=== PATIENT | male | born 1960 | race African-American/Black ===

== ENCOUNTER 2020-12-04 16:07 | Inpatient (IN) | payer OTHER ==
[~2020-12-04] VITALS: Ht 180.3 cm; Wt 79.8 kg
[2020-12-04] MEDS ORDERED: PIPERACILLIN/TAZ 3.375G PREMIX 50 ML IV ONE (17:15)
[2020-12-04] MEDS ORDERED: VANCOMYCIN 1 G PREMIX 200 ML IV ONE (17:15)
[2020-12-04] MEDS ORDERED: SODIUM CHLORIDE 0.9% 1000ML BAG (SEPSIS BOLUS) IV ONE (17:15)
[2020-12-04 17:43] LABS: HEMATOCRIT. 28.8 % (42.0-52.0); HEMOGLOBIN. 10.1 g/dL (14.0-18.0); MEAN CORPUSCULAR HEMOGLOBIN 33.2 pg (28.0-32.0); MEAN CORPUSCULAR VOLUME 94.8 fL (80.0-94.0); MEAN PLATELET VOLUME 7.7 fl (7.4-10.4); PLATELET 199 x1000/uL (130-400); RED BLOOD CELL COUNT 3.04 mill/uL (4.7-6.1); RED CELL DISTRIBUTION WIDTH 12.8 % (11.6-14.6)
[2020-12-04 17:51] LABS: CHLORIDE 98 mEq/L (98-107)
[2020-12-04 17:58] LABS: BETA HYDROXYBUTYRATE 0.4 mMol/L (0.0-0.3)
[2020-12-04 18:10] LABS: INR 1.1; PARTIAL THROMBOPLASTIN TIME 31.3 sec (23.4-31.0); PROTHROMBIN TIME 11.9 sec (9.6-11.0)
[2020-12-04] MEDS ORDERED: CLINDAMYCIN 600 MG in DEXTROSE 5% WATER 50 ML IV ONE (18:30)
[2020-12-04] MEDS ORDERED: CLINDAMYCIN 600MG PREMIX 50 ML IV NR (18:45)
[2020-12-04 18:54] LABS: PLATELET ESTIMATE NORMAL
[2020-12-04 21:23] LABS: CLARITY URINE CLOUDY (CLEAR); COLOR URINE YELLOW (YELLOW); KETONES URINE NEGATIVE (NEGATIVE); LEUKOCYTE ESTERASE URINE NEGATIVE (NEGATIVE); NITRITE URINE NEGATIVE (NEGATIVE); OCCULT BLOOD URINE 2+ (NEGATIVE); PROTEIN URINE 3+ (NEGATIVE); SPECIFIC GRAVITY URINE 1.015 (1.005-1.030); UROBILINOGEN URINE 0.2 E.U./dL (0.2-1.0)
[2020-12-05 14:00] VITALS: BP 170/87
[2020-12-05] MEDS ORDERED: GLIP10TA10 MT (14:11)
[2020-12-05] MEDS ORDERED: DEXTROSE 50% WATER 50ML SYRINGE IV PRN (14:15)
[2020-12-05] MEDS ORDERED: HYDROCODONE/ACETAMINOPHEN 10/325MG TABLET PO PRN (14:15)
[2020-12-05] MEDS ORDERED: ONDANSETRON HCL 4MG/2ML INJ IV PRN (14:15)
[2020-12-05] MEDS ORDERED: PIPERACILLIN/TAZOBACTAM 3.375 G in DEXT 5% WATER 100 ML IV SCH (14:15)
[2020-12-05] MEDS: SODIUM CHLORIDE 0.9% 1,000 ML IV SCH (15:18)
[2020-12-05] MEDS: CLONIDINE 0.1MG TABLET PO PRN (15:18)
[2020-12-05 16:00] VITALS: BP 159/84
[2020-12-05] MEDS: PIPERACILLIN/TAZOBACTAM 2.25 G in DEXTROSE 5% WATER 50 ML IV SCH ×2 (16:28→21:42)
[2020-12-05] MEDS ORDERED: VANCOMYCIN 750 MG PREMIX 150 ML IV NR (16:30)
[2020-12-05] MEDS: BLOOD SUGAR DIAGNOSTIC STRIP TEST SCH ×2 (17:20→21:38)
[2020-12-05] MEDS: INSULIN LISPRO 100 UNITS/ML SUBCUT SCH ×2 (17:24→21:00)
[2020-12-05 20:00] VITALS: BP 128/82
[2020-12-06] VITALS: BP 143/73
[2020-12-06] MEDS: ACETAMINOPHEN 325MG TABLET PO PRN (01:00)
[2020-12-06] MEDS: PIPERACILLIN/TAZOBACTAM 2.25 G in DEXTROSE 5% WATER 50 ML IV SCH ×4 (03:37→21:08)
[2020-12-06] MEDS: SODIUM CHLORIDE 0.9% 1,000 ML IV SCH ×2 (03:40→17:21)
[2020-12-06 04:00] VITALS: BP 128/82
[2020-12-06] MEDS: BLOOD SUGAR DIAGNOSTIC STRIP TEST SCH ×4 (06:01→21:08)
[2020-12-06] MEDS: INSULIN LISPRO 100 UNITS/ML SUBCUT SCH ×4 (06:06→21:09)
[2020-12-06 07:17] LABS: HEMATOCRIT. 25.5 % (42.0-52.0); HEMOGLOBIN. 8.9 g/dL (14.0-18.0); MEAN CORPUSCULAR VOLUME 94.5 fL (80.0-94.0); MEAN PLATELET VOLUME 8.2 fl (7.4-10.4); PLATELET 200 x1000/uL (130-400); RED CELL DISTRIBUTION WIDTH 12.4 % (11.6-14.6)
[2020-12-06 08:00] VITALS: BP 156/77
[2020-12-06] MEDS: AMLODIPINE 10MG TABLET PO SCH (09:39)
[2020-12-06 11:37] LABS: PLATELET ESTIMATE NORMAL
[2020-12-06 11:51] LABS: TOTAL IRON BINDING CAPACITY 163 ug/dL (250-450)
[2020-12-06 12:00] VITALS: BP 140/83
[2020-12-06] MEDS: VANCOMYCIN 1 G PREMIX 200 ML IV SCH (12:32)
[2020-12-06 15:22] LABS: *BARBITURATES SCREEN URINE NEGATIVE (NEGATIVE); *BENZODIAZEPINES SCREEN URINE NEGATIVE (NEGATIVE); *COCAINE SCREEN URINE NEGATIVE (NEGATIVE); METHADONE URINE SCREEN NEGATIVE (NEGATIVE); OPIATES URINE SCREEN NEGATIVE (NEGATIVE)
[2020-12-06 15:23] LABS: *AMPHETAMINES SCREEN URINE NEGATIVE (NEGATIVE); CANNABINOID URINE SCREEN PRESUMTIVE POSITIVE (NEGATIVE); PHENCYCLIDINE URINE SCREEN NEGATIVE (NEGATIVE)
[2020-12-06 16:00] VITALS: BP 130/70
[2020-12-06] MEDS ORDERED: INSULIN GLARGINE UD 100 UNITS/ML SYR SUBCUT NR (16:45)
[2020-12-06 20:00] VITALS: BP 165/87
[2020-12-06] MEDS: CLONIDINE 0.1MG TABLET PO PRN (21:08)
[2020-12-06] MEDS: INSULIN GLARGINE UD 100 UNITS/ML SYR SUBCUT SCH (21:09)
[2020-12-07] VITALS: BP 122/80
[2020-12-07 04:00] VITALS: BP 120/81
[2020-12-07] MEDS: PIPERACILLIN/TAZOBACTAM 2.25 G in DEXTROSE 5% WATER 50 ML IV SCH ×3 (04:02→16:40)
[2020-12-07 05:58] LABS: BASOPHILS % 0.3 % (0.0-2.0); EOSINOPHILS % 2.3 % (0.0-5.0); HEMATOCRIT. 24.7 % (42.0-52.0); HEMOGLOBIN. 8.6 g/dL (14.0-18.0); LYMPHOCYTES % 18.9 % (20.0-50.0); MEAN CORPUSCULAR HEMOGLOBIN 33.3 pg (28.0-32.0); MEAN CORPUSCULAR VOLUME 95.1 fL (80.0-94.0); MEAN PLATELET VOLUME 8.1 fl (7.4-10.4); MONOCYTES % 10.5 % (2.0-8.0); PLATELET 188 x1000/uL (130-400); RED CELL DISTRIBUTION WIDTH 12.4 % (11.6-14.6)
[2020-12-07] MEDS: BLOOD SUGAR DIAGNOSTIC STRIP TEST SCH ×4 (06:12→20:40)
[2020-12-07] MEDS: INSULIN LISPRO 100 UNITS/ML SUBCUT SCH ×4 (06:13→21:01)
[2020-12-07] MEDS: SODIUM CHLORIDE 0.9% 1,000 ML IV SCH ×2 (06:15→18:50)
[2020-12-07 08:00] VITALS: BP 162/83
[2020-12-07] MEDS: VANCOMYCIN 1 G PREMIX 200 ML IV SCH (09:40)
[2020-12-07] MEDS: AMLODIPINE 10MG TABLET PO SCH (09:40)
[2020-12-07] MEDS: INSULIN GLARGINE UD 100 UNITS/ML SYR SUBCUT SCH ×2 (10:16→21:01)
[2020-12-07 12:00] VITALS: BP 158/80
[2020-12-07 16:00] VITALS: BP 143/78
[2020-12-07 20:00] VITALS: BP 174/87
[2020-12-07] MEDS: CLONIDINE 0.1MG TABLET PO PRN (20:58)
[2020-12-07] MEDS: CEFTRIAXONE 2 G in DEXTROSE 5% WATER 50 ML IV SCH (20:59)
[2020-12-08] VITALS: BP 135/83
[2020-12-08 04:00] VITALS: BP 179/86
[2020-12-08] MEDS: CLONIDINE 0.1MG TABLET PO PRN ×2 (04:58→17:39)
[2020-12-08] MEDS: BLOOD SUGAR DIAGNOSTIC STRIP TEST SCH ×4 (05:53→21:44)
[2020-12-08] MEDS: INSULIN LISPRO 100 UNITS/ML SUBCUT SCH ×4 (06:18→21:00)
[2020-12-08 06:44] LABS: BASOPHILS % 0.4 % (0.0-2.0); EOSINOPHILS % 2.1 % (0.0-5.0); HEMATOCRIT. 23.3 % (42.0-52.0); LYMPHOCYTES % 17.6 % (20.0-50.0); MEAN CORPUSCULAR HEMOGLOBIN 33.3 pg (28.0-32.0); MEAN PLATELET VOLUME 7.4 fl (7.4-10.4); MONOCYTES % 7.7 % (2.0-8.0); NEUTROPHILS % 72.2 % (40.0-76.0); PLATELET 204 x1000/uL (130-400); RED CELL DISTRIBUTION WIDTH 12.5 % (11.6-14.6)
[2020-12-08 08:00] VITALS: BP 145/75
[2020-12-08] MEDS ORDERED: HYDRALAZINE HCL 50MG TABLET PO NR (08:00)
[2020-12-08] MEDS: AMLODIPINE 10MG TABLET PO SCH (09:08)
[2020-12-08] MEDS: INSULIN GLARGINE UD 100 UNITS/ML SYR SUBCUT SCH ×2 (09:09→21:43)
[2020-12-08] MEDS ORDERED: LIDOCAINE HCL 1% 20ML VIAL (Pyxis) INJ ONE (10:35)
[2020-12-08 12:00] VITALS: BP 168/85
[2020-12-08 16:00] VITALS: BP 163/75
[2020-12-08 20:00] VITALS: BP 144/74
[2020-12-08] MEDS: HYDRALAZINE HCL 50MG TABLET PO SCH (21:42)
[2020-12-08] MEDS: CEFTRIAXONE 2 G in DEXTROSE 5% WATER 50 ML IV SCH (21:42)
[2020-12-09] VITALS: BP 151/76
[2020-12-09 04:00] VITALS: BP 142/72
[2020-12-09] MEDS: BLOOD SUGAR DIAGNOSTIC STRIP TEST SCH ×4 (06:13→21:20)
[2020-12-09] MEDS: INSULIN LISPRO 100 UNITS/ML SUBCUT SCH ×4 (06:13→21:00)
[2020-12-09 06:43] LABS: BASOPHILS % 0.5 % (0.0-2.0); EOSINOPHILS % 2.9 % (0.0-5.0); HEMATOCRIT. 22.2 % (42.0-52.0); HEMOGLOBIN. 7.9 g/dL (14.0-18.0); LYMPHOCYTES % 20.9 % (20.0-50.0); MEAN CORPUSCULAR HEMOGLOBIN 33.7 pg (28.0-32.0); MEAN CORPUSCULAR VOLUME 94.7 fL (80.0-94.0); MEAN PLATELET VOLUME 7.4 fl (7.4-10.4); MONOCYTES % 8.3 % (2.0-8.0); NEUTROPHILS % 67.4 % (40.0-76.0); PLATELET 221 x1000/uL (130-400); RED BLOOD CELL COUNT 2.35 mill/uL (4.7-6.1); RED CELL DISTRIBUTION WIDTH 12.6 % (11.6-14.6)
[2020-12-09 08:00] VITALS: BP 156/86
[2020-12-09] MEDS: HYDRALAZINE HCL 50MG TABLET PO SCH ×2 (09:23→21:20)
[2020-12-09] MEDS: AMLODIPINE 10MG TABLET PO SCH (09:23)
[2020-12-09] MEDS: INSULIN GLARGINE UD 100 UNITS/ML SYR SUBCUT SCH ×2 (09:24→21:28)
[2020-12-09 12:00] VITALS: BP 150/69
[2020-12-09] MEDS: ACETAMINOPHEN 325MG TABLET PO PRN (15:55)
[2020-12-09 16:00] VITALS: BP 152/80
[2020-12-09 20:00] VITALS: BP 156/68
[2020-12-09] MEDS: CEFTRIAXONE 2 G in DEXTROSE 5% WATER 50 ML IV SCH (21:20)
[2020-12-10] VITALS: BP 150/72
[2020-12-10 04:00] VITALS: BP 144/72
[2020-12-10] MEDS: BLOOD SUGAR DIAGNOSTIC STRIP TEST SCH ×4 (05:55→21:00)
[2020-12-10] MEDS: INSULIN LISPRO 100 UNITS/ML SUBCUT SCH ×4 (05:55→21:18)
[2020-12-10 07:13] LABS: BASOPHILS % 0.6 % (0.0-2.0); EOSINOPHILS % 3.2 % (0.0-5.0); HEMATOCRIT. 24.4 % (42.0-52.0); HEMOGLOBIN. 8.5 g/dL (14.0-18.0); MEAN CORPUSCULAR HEMOGLOBIN 32.7 pg (28.0-32.0); MEAN CORPUSCULAR VOLUME 94.1 fL (80.0-94.0); MEAN PLATELET VOLUME 7.1 fl (7.4-10.4); NEUTROPHILS % 68.2 % (40.0-76.0); PLATELET 266 x1000/uL (130-400); RED CELL DISTRIBUTION WIDTH 12.9 % (11.6-14.6)
[2020-12-10 08:00] VITALS: BP 159/81
[2020-12-10] MEDS: HYDRALAZINE HCL 50MG TABLET PO SCH ×2 (09:07→21:16)
[2020-12-10] MEDS: AMLODIPINE 10MG TABLET PO SCH (09:07)
[2020-12-10] MEDS: INSULIN GLARGINE UD 100 UNITS/ML SYR SUBCUT SCH ×2 (09:10→22:09)
[2020-12-10 12:00] VITALS: BP 148/72
[2020-12-10] MEDS ORDERED: INSLIS SUBCUT (12:15)
[2020-12-10] MEDS ORDERED: HYDR-4135 PO (12:15)
[2020-12-10] MEDS ORDERED: LANTUSUD SUBCUT (12:15)
[2020-12-10] MEDS ORDERED: HYDR-4009 PO (12:15)
[2020-12-10] MEDS ORDERED: HYDR-4009 MT (12:15)
[2020-12-10] MEDS ORDERED: AMLO10TA80 PO (12:15)
[2020-12-10 16:00] VITALS: BP 144/69
[2020-12-10 20:00] VITALS: BP 144/87
[2020-12-10] MEDS: CEFTRIAXONE 2 G in DEXTROSE 5% WATER 50 ML IV SCH (21:16)
[2020-12-11] VITALS: BP 157/74
[2020-12-11 04:00] VITALS: BP 132/95
[2020-12-11] MEDS: BLOOD SUGAR DIAGNOSTIC STRIP TEST SCH ×2 (06:45→12:06)
[2020-12-11] MEDS: INSULIN LISPRO 100 UNITS/ML SUBCUT SCH ×2 (07:15→12:34)
[2020-12-11 07:36] LABS: BASOPHILS % 0.7 % (0.0-2.0); HEMATOCRIT. 24.3 % (42.0-52.0); HEMOGLOBIN. 8.6 g/dL (14.0-18.0); LYMPHOCYTES % 23.5 % (20.0-50.0); MEAN CORPUSCULAR HEMOGLOBIN 33.6 pg (28.0-32.0); MEAN CORPUSCULAR VOLUME 94.5 fL (80.0-94.0); MEAN PLATELET VOLUME 6.8 fl (7.4-10.4); NEUTROPHILS % 65.8 % (40.0-76.0); PLATELET 266 x1000/uL (130-400); RED BLOOD CELL COUNT 2.57 mill/uL (4.7-6.1)
[2020-12-11 08:00] VITALS: BP 160/75
[2020-12-11] MEDS: HYDRALAZINE HCL 50MG TABLET PO SCH (08:25)
[2020-12-11] MEDS: AMLODIPINE 10MG TABLET PO SCH (08:25)
[2020-12-11] MEDS: INSULIN GLARGINE UD 100 UNITS/ML SYR SUBCUT SCH (10:40)
[2020-12-11 11:53] VITALS: BP 142/64
[2020-12-11 12:00] VITALS: BP 142/64
[2020-12-11] MEDS: CEFTRIAXONE 2 G in DEXTROSE 5% WATER 50 ML IV SCH (13:50)
== END 2020-12-11 14:50 | disposition home health service (06) | DRG 710 ==
LOC: ER 16:07 → EDBEDREQ 19:45 → 5WST 19:59 → EDBEDREQ 20:02 → ENRESERV 12-05 11:46
PROVIDERS: ADMIT Internal Medicine; ATTEND Internal Medicine
PROC: 0J9R0ZZ Drainage of Left Foot Subcutaneous Tissue and Fascia, Open Approach (ICD-10-PCS; principal; 2020-12-05)
PROC: 05H333Z Insertion of Infusion Device into Right Innominate Vein, Percutaneous Approach (ICD-10-PCS; 2020-12-08)
PROC: B51M1ZA Fluoroscopy of Right Upper Extremity Veins using Low Osmolar Contrast, Guidance (ICD-10-PCS; 2020-12-08)
PROC: B54MZZA Ultrasonography of Right Upper Extremity Veins, Guidance (ICD-10-PCS; 2020-12-08)
DX: A40.8 Other streptococcal sepsis (principal); N17.0 Acute kidney failure with tubular necrosis; A48.0 Gas gangrene; E44.0 Moderate protein-calorie malnutrition; E11.52 Type 2 diabetes mellitus with diabetic peripheral angiopathy with gangrene; E87.1 Hypo-osmolality and hyponatremia; E11.621 Type 2 diabetes mellitus with foot ulcer; L97.529 Non-pressure chronic ulcer of other part of left foot with unspecified severity; E11.65 Type 2 diabetes mellitus with hyperglycemia; L02.612 Cutaneous abscess of left foot; D63.8 Anemia in other chronic diseases classified elsewhere; M86.8X6 Other osteomyelitis, lower leg; I10 Essential (primary) hypertension; E11.69 Type 2 diabetes mellitus with other specified complication; Z20.822 Contact with and (suspected) exposure to COVID-19; Z79.4 Long term (current) use of insulin; Z79.899 Other long term (current) drug therapy; Z68.24 Body mass index [BMI] 24.0-24.9, adult; M21.372 Foot drop, left foot
CPT/HCPCS: 36415; 36573; 71045; 73630; 73721; 76770; 80048; 80053; 80202; 80305; 81003; 82010; 82728; 82962; 83036; 83540; 83550; 83605; 84145; 85025; 86850; 86900; 87070; 87077; 87186; 87426; 93005; 93306; 97022; 97162; 99285; C1725; C1769; J0696; J1815; J2543; J3370; J3490; J7030; J7060

== ENCOUNTER 2022-12-30 15:33 | Emergency (ER) | payer MEDICAID, OTHER ==
[~2022-12-30] VITALS: Ht 182.9 cm; Wt 86.0 kg
[~2022-12-30 15:33] MED LIST: AMLO10TA80 PO; HYDR-4009 MT; HYDR-4009 PO; HYDR-4135 PO; INSLIS SUBCUT; LANTUSUD SUBCUT
[2022-12-30 15:38] VITALS: O2SAT 100
[2022-12-30] MEDS ORDERED: LIDOCAINE 5% PATCH TOP STA (15:43)
[2022-12-30] MEDS ORDERED: METHOCARBAMOL 750MG TABLET PO SCH (15:45)
[2022-12-30] MEDS ORDERED: ACETAMINOPHEN 325MG TABLET PO ONE (15:45)
[2022-12-30] MEDS ORDERED: KETOROLAC 60MG/2ML VIAL IM ONE (15:45)
[2022-12-30] MEDS ORDERED: METHOCARBAMOL 500MG TABLET PO NR (16:00)
[2022-12-30 16:08] LABS: BASOPHILS % 0.6 % (0.0-2.0); EOSINOPHILS % 4.9 % (0.0-5.0); HEMATOCRIT. 33.1 % (42.0-52.0); HEMOGLOBIN. 11.4 g/dL (14.0-18.0); LYMPHOCYTES % 18.8 % (20.0-50.0); MEAN CORPUSCULAR VOLUME 99.1 fL (80.0-94.0); MEAN PLATELET VOLUME 7.8 fl (7.4-10.4); MONOCYTES % 6.9 % (2.0-8.0); NEUTROPHILS % 68.8 % (40.0-76.0); PLATELET 198 x1000/uL (130-400); RED BLOOD CELL COUNT 3.34 mill/uL (4.7-6.1); RED CELL DISTRIBUTION WIDTH 14.4 % (11.6-14.6)
[2022-12-30 16:12] LABS: CHLORIDE 111 mEq/L (98-107)
[2022-12-30] MEDS ORDERED: SODIUM CHLORIDE 0.9% 1,000 ML IV ONE (16:45)
[2022-12-30] MEDS ORDERED: METH-653 MT (20:57)
[2022-12-30] MEDS ORDERED: TOPUD PO (20:57)
[2022-12-30] MEDS ORDERED: LIDO1ADH23 TP (20:57)
[2022-12-30] MEDS ORDERED: IBUP-2028 MT (20:57)
[2022-12-30 21:20] VITALS: BP 161/80; PULSE 81; RESP 16; TEMP 98.1
== END 2022-12-30 21:22 | disposition home or self-care (01) ==
LOC: ER 15:33
DX: E11.22 Type 2 diabetes mellitus with diabetic chronic kidney disease (principal); I12.0 Hypertensive chronic kidney disease with stage 5 chronic kidney disease or end stage renal disease; N18.6 End stage renal disease; Z79.899 Other long term (current) drug therapy
CPT/HCPCS: 99285; 96360; 71045; 96361; 80053; 83880; 85025; 84484; 36415; 71120; 93005; 96372; 80048; J1885; J7030